=== PATIENT | female | born 1980 | race Asian ===

== ENCOUNTER 2017-05-16 10:59 | Inpatient (IN) | payer MEDICAID, OTHER, SELFPAY ==
[2017-05-16] MEDS ORDERED: Misoprostol 200 MCG TAB PR PRN (11:21)
[2017-05-16] MEDS ORDERED: Diphenoxylate HCl/Atropine Tablet PO PRN ×2 (11:21)
[2017-05-16] MEDS ORDERED: Zolpidem Tartrate 5 MG TAB PO PRN (11:21)
[2017-05-16] MEDS ORDERED: Lidocaine 1% (PF) 30 ML VIAL SC PRN (11:21)
[2017-05-16] MEDS ORDERED: Ondansetron HCl/PF 4 MG/2 ML Vial IVP PRN ×2 (11:21→16:18)
[2017-05-16] MEDS ORDERED: LR / Pitocin 40 units/1000 ml 1,000 ML IV PRN (11:21)
[2017-05-16] MEDS ORDERED: HYDROcodone/Acetaminophen 5/325 mg Tablet PO PRN ×2 (11:21)
[2017-05-16] MEDS ORDERED: Docusate 100 MG CAP PO PRN (11:21)
[2017-05-16] MEDS ORDERED: Ibuprofen 800 MG TAB PO PRN (11:21)
[2017-05-16] MEDS ORDERED: Acetaminophen 500 MG TAB PO PRN (11:21)
[2017-05-16] MEDS ORDERED: Promethazine HCl 25 MG/ML VIAL IM PRN ×2 (11:21→16:18)
[2017-05-16] MEDS ORDERED: Lactated Ringer's 1,000 ML IV SCH (11:30)
[2017-05-16] MEDS ORDERED: LR 500 ML/Oxytocin 10 units 500 ML IV SCH (11:30)
[2017-05-16 11:44] VITALS: BMI 22.1
[2017-05-16 12:24] LABS: Hematocrit 36.7 % (36.0-47.0); Mean Platelet Volume 10.2 fL (7.4-10.4); Red Blood Cell (RBC) Count 3.79 mill/uL (4.20-5.40); White Blood Cell (WBC) Count 9.3 thou/uL (4.8-10.8)
[2017-05-16] MEDS ORDERED: LR 500 ML/Oxytocin 10 units 500 ML ONE (14:53)
[2017-05-16] MEDS ORDERED: Fentanyl 4 mcg/Marc 0.1% Cadd 100 ML ONE (15:30)
[2017-05-16] MEDS ORDERED: Eucerin (Mineral Oil/Petrolatum,White) 30 gm Jar TOP PRN (16:18)
[2017-05-16] MEDS ORDERED: Lactated Ringer's 500 ML IV PRN (16:18)
[2017-05-16] MEDS ORDERED: ePHEDrine/0.9% NaCl/PF SYRINGE 50 mg/10 ml SLOW IVP PRN (16:18)
[2017-05-16] MEDS ORDERED: diphenhydrAMINE HCl 50 MG/ML 1 ML VIAL IVP PRN (16:18)
[2017-05-16] MEDS ORDERED: Naloxone HCl 0.4 mg/ml Vial IVP PRN ×2 (16:18)
[2017-05-16] MEDS ORDERED: Acetaminophen 325 MG TAB PO PRN (16:18)
[2017-05-16] MEDS ORDERED: Communication Order-Pharmacy FS SCH (16:30)
[2017-05-16] MEDS ORDERED: Fentanyl 4mcg/Marcaine 0.1% Cassette 100 ML EPIDURAL SCH (16:30)
[2017-05-16] MEDS ORDERED: LR / Pitocin 40 units/1000 ml 1,000 ML ONE ×2 (19:07→21:52)
[2017-05-16] MEDS ORDERED: Lidocaine 1% (PF) 30 ML VIAL ONE (19:07)
[2017-05-16] MEDS ORDERED: FLU VACC QS2017-18 36 mo. & older 0.5 ML SYRINGE IM ONE (21:00)
[2017-05-17] MEDS ORDERED: Acetaminophen/Codeine 30-300mg Tablet PO PRN ×2 (07:41)
[2017-05-17] MEDS ORDERED: Bisacodyl 10 MG SUPP PR PRN (07:41)
[2017-05-17] MEDS ORDERED: diphenhydrAMINE HCl 25 MG CAP PO PRN (07:41)
[2017-05-17] MEDS ORDERED: Benzocaine/Menthol 20-0.5% 60 ML CAN TOP PRN (07:41)
[2017-05-17] MEDS ORDERED: Preparation H Ointment 28 GM TUBE PR PRN (07:41)
[2017-05-17] MEDS ORDERED: Ondansetron HCl/PF 4 MG/2 ML Vial IVP PRN (07:41)
[2017-05-17] MEDS ORDERED: Zolpidem Tartrate 5 MG TAB PO PRN (07:41)
[2017-05-17] MEDS ORDERED: Adacel (T-DAP) 0.5 ML VIAL IM ONE (07:41)
[2017-05-17] MEDS ORDERED: Lanolin Ointment 7 GM TUBE TOP PRN (07:41)
[2017-05-17] MEDS ORDERED: LR / Pitocin 40 units/1000 ml 1,000 ML IV SCH (07:45)
[2017-05-17] MEDS: Prenatal Vitamin 1 TAB PO SCH (09:05)
[2017-05-17] MEDS: Milk Of Magnesia 30 ML UDCUP PO PRN (09:05)
[2017-05-17] MEDS: Docusate (Surfak) 240 MG CAP PO SCH (09:05)
[2017-05-17] MEDS: Ferrous Sulfate 325 MG TAB PO SCH ×2 (09:06→14:14)
[2017-05-17] MEDS ORDERED: FLU VACC QS2017-18 36 mo. & older 0.5 ML SYRINGE IM ONE (12:00)
[2017-05-17] MEDS: Ibuprofen 800 MG TAB PO SCH (14:03)
[2017-05-18 06:02] LABS: Hematocrit 28.5 % (36.0-47.0); Mean Platelet Volume 9.7 fL (7.4-10.4); Red Blood Cell (RBC) Count 2.89 mill/uL (4.20-5.40); White Blood Cell (WBC) Count 9.7 thou/uL (4.8-10.8)
[2017-05-18] MEDS: Ibuprofen 800 MG TAB PO SCH ×2 (06:37→06:39)
[2017-05-18] MEDS: Docusate (Surfak) 240 MG CAP PO SCH ×2 (06:38→09:23)
[2017-05-18 07:54] VITALS: BP 119/55; TEMP 98
[2017-05-18] MEDS: Milk Of Magnesia 30 ML UDCUP PO PRN (09:22)
[2017-05-18] MEDS: Prenatal Vitamin 1 TAB PO SCH (09:23)
[2017-05-18] MEDS: Ferrous Sulfate 325 MG TAB PO SCH (09:23)
== END 2017-05-18 14:30 | disposition home or self-care (01) | DRG 775 ==
LOC: L&D/OP 10:59 → EDSTATUS 11:43 → L&D 11:47 → 3SW 23:08
PROVIDERS: ADMIT Obstetrics & Gynecology; ATTEND Obstetrics & Gynecology
PROC: 10E0XZZ Delivery of Products of Conception, External Approach (ICD-10-PCS; principal; 2017-05-16)
PROC: 0W8NXZZ Division of Female Perineum, External Approach (ICD-10-PCS; 2017-05-16)
PROC: 10907ZC Drainage of Amniotic Fluid, Therapeutic from Products of Conception, Via Natural or Artificial Opening (ICD-10-PCS; 2017-05-16)
DX: O24.420 Gestational diabetes mellitus in childbirth, diet controlled (principal); Z37.0 Single live birth; Z3A.39 39 weeks gestation of pregnancy; Z23 Encounter for immunization
CPT/HCPCS: 36415; 85027; 86780; 87340; 90471; 90682; G0008; J2001; J7120; Q2036